=== PATIENT | female | born 1980 | race Caucasian/White ===

== ENCOUNTER 2019-07-15 09:01 | Day surgery (SDC) | payer OTHER ==
[~2019-07-15] VITALS: Ht 160 cm; Wt 111.5 kg
[2019-07-15] VITALS (14 sets, daily range): BP systolic 104–136; BP diastolic 57–88; PULSE 84–93; RESP 16–21; Ht 160 cm; Wt 111.5 kg
[~2019-07-15 09:01] MED LIST: CEFAZOLIN 2 GM/50 ML (PMX) 50 ML IVPB SCH; SOD CHLORIDE 0.9% 1,000 ML IV SCH
[2019-07-15] MEDS ORDERED: BUPIVACAINE 0.25% (MPF) 30 ML INJ ONE (12:23)
[2019-07-15] MEDS ORDERED: BUPIVACAINE 0.25%/EPI (SDV) 10 ML INJ ONE (12:23)
[2019-07-15] MEDS ORDERED: GLYCOPYRROLATE 0.4 MG INJ ONE (12:30)
[2019-07-15] MEDS ORDERED: OXYCODONE/ACETAMINOPHEN (5/325) TAB PO PRN ×2 (12:30)
[2019-07-15] MEDS ORDERED: LABETALOL HCL 20MG INJ IV PRN (12:30)
[2019-07-15] MEDS ORDERED: EPHEDrine 25 MG/5 ML SYG IV PRN (12:30)
[2019-07-15] MEDS ORDERED: ROCURONIUM 50 MG INJ ONE (12:30)
[2019-07-15] MEDS ORDERED: FENTAnyl 50 MCG/ML VIAL IV PRN ×3 (12:30)
[2019-07-15] MEDS ORDERED: MIDAZOLAM 1 MG/ML 2 ML INJ ONE (12:30)
[2019-07-15] MEDS ORDERED: TRIMETHOBENZAMIDE 100 MG/ML VIAL IM PRN (12:30)
[2019-07-15] MEDS ORDERED: CEFAZOLIN 1 GM INJ ONE (12:30)
[2019-07-15] MEDS ORDERED: DIPHENHYDRAMINE 50 MG INJ IV PRN (12:30)
[2019-07-15] MEDS ORDERED: ALBUTEROL 0.083% (NEB) 2.5 MG/3 ML AMP HHN PRN (12:30)
[2019-07-15] MEDS ORDERED: hydrALAzine 20 MG INJ IV PRN (12:30)
[2019-07-15] MEDS ORDERED: ONDANSETRON 4 MG INJ IV PRN ×2 (12:30→14:30)
[2019-07-15] MEDS ORDERED: MEPERIDINE 25 MG INJ IV PRN (12:30)
[2019-07-15] MEDS ORDERED: SUCCINYLCHOLINE CHLORIDE 100 MG/5 ML SYG IV ONE (12:30)
[2019-07-15] MEDS ORDERED: PROPOFOL 20 ML ONE (12:30)
[2019-07-15] MEDS ORDERED: MIDAZOLAM 1 MG/ML 2 ML INJ IV PRN (12:30)
[2019-07-15] MEDS ORDERED: NEOSTIGMINE 3 MG/3 ML SYRINGE ONE (12:30)
[2019-07-15] MEDS ORDERED: FENTAnyl 50 MCG/ML VIAL ONE (12:30)
[2019-07-15] MEDS ORDERED: IPRATROPIUM (NEB) 0.5 MG/2.5 ML AMP HHN PRN (12:30)
[2019-07-15] MEDS ORDERED: HYDROmorphONE 1 MG/5 ML IV SYRINGE IV PRN ×3 (12:30)
[2019-07-15] MEDS ORDERED: ONDANSETRON 4 MG INJ ONE (12:31)
[2019-07-15] MEDS ORDERED: DEXAMETHASONE 4 MG/ML 5 ML INJ ONE (12:31)
[2019-07-15] MEDS ORDERED: SUGAMMADEX SODIUM 200 MG/2 ML VIAL IV ONE (14:10)
[2019-07-15] MEDS ORDERED: HYDROCODONE/APAP (5/325) TAB PO PRN (14:30)
[2019-07-15] MEDS ORDERED: morphine 2 MG INJ IV PRN (14:30)
[2019-07-15] MEDS ORDERED: IBUPROFEN 600 MG TAB PO PRN (14:30)
[2019-07-15] MEDS ORDERED: KETOROLAC 30 MG INJ IV PRN (14:30)
== END 2019-07-15 16:00 | disposition home or self-care (01) ==
LOC: SDS 09:01
PROVIDERS: ATTEND Surgery
DX: N60.12 Diffuse cystic mastopathy of left breast (principal); N60.22 Fibroadenosis of left breast; D24.2 Benign neoplasm of left breast; E66.01 Morbid (severe) obesity due to excess calories; Z68.41 Body mass index [BMI] 40.0-44.9, adult
CPT/HCPCS: 19125; 88307; J0690; J1100; J2250; J2405; J3010; Z7512; Z7610; J2710